=== PATIENT | female | born 1980 | race Caucasian/White ===

== ENCOUNTER → 2016-06-12 | Outpatient (CLI) | payer MEDICARE, MEDICAID ==
--- NOTE | 2016-06-12 16:14 | REP ---
PELVIC ULTRASOUND: Real-time sonographic evaluation of the pelvis was performed utilizing transabdominal and endovaginal technique. The urinary bladder measures approximately 9.3 x 6.2 x 7.0 cm. The uterus measures 11.1 x 4.5 x 5.7 cm. Trace fluid is seen in the cervical canal. Endometrial thickness is prominent at 17 mm with no endometrial fluid collection. Right ovary measures 3.0 x 2.3 x 2.7 cm and left ovary 2.8 x 1.3 x 2.3 cm. Blood flow is seen in the ovaries with Duplex Doppler evaluation, with no torsion. Complex dominant follicle in the right ovary measures 2.1 cm in diameter. Small paraovarian cystic structure adjacent to the right ovary inferolaterally measures 9 x 6 x 7 mm. There is no other evidence of adnexal mass. Trace free fluid is seen. IMPRESSION: Complex dominant follicle right ovary. Small right paraovarian cystic structure with maximum diameter of 9 mm. No torsion. Trace free fluid. Signed by Joel Man MD 06/12/2016 05:27 P
== END ==
LOC: M RAD 14:04
PROVIDERS: ATTEND Physician Assistant
DX: R10.2 Pelvic and perineal pain (principal); R93.8 Abnormal findings on diagnostic imaging of other specified body structures

== ENCOUNTER → 2017-07-02 | Outpatient (CLI) | payer MEDICARE, MEDICAID | LOC: M PAIN 10:30 | DX: R25.2 Cramp and spasm (principal); G89.29 Other chronic pain; M25.562 Pain in left knee; M54.42 Lumbago with sciatica, left side; Z79.899 Other long term (current) drug therapy; Z88.0 Allergy status to penicillin; Z97.5 Presence of (intrauterine) contraceptive device; Z98.84 Bariatric surgery status; Z87.891 Personal history of nicotine dependence | CPT/HCPCS: G0463 ==

== ENCOUNTER → 2023-11-08 | Outpatient (REF) ==
[~2023-11-08] MED LIST: BUSP15TA47 PO; CLON1TAB8 PO; GABA-1171 PO; HYDR50CA2 PO; PARO30TA4 PO; PRAZ2CAP PO; ZIPR60CA20 PO
== END ==
LOC: M EMP 13:50
PROVIDERS: ATTEND Family Medicine
DX: Z11.52 Encounter for screening for COVID-19 (principal)

== ENCOUNTER → 2023-11-15 | Outpatient (REF) | LOC: M EMP 07:07 | PROVIDERS: ATTEND Family Medicine | DX: Z11.52 Encounter for screening for COVID-19 (principal) ==